=== PATIENT | female | born 1950 | race Two or more races ===

== ENCOUNTER 2019-04-29 11:11 | Emergency (ER) | payer OTHER ==
[~2019-04-29] VITALS: Ht 165.1 cm; Wt 93.0 kg
--- NOTE | 2019-04-29 11:29 | NUR ---
pt is in room #1b. dr Walsh evaluatedthe pt.
[2019-04-29] MEDS ORDERED: IV NORMAL SALINE 1000 ML BAG IV ONE (11:30)
[2019-04-29 11:42] LABS: BASOPHILS % (AUTO) 0.4 % (0.0-2.0); EOSINOPHILS % (AUTO) 0.6 % (0.0-7.0); HEMATOCRIT 39.7 % (31.2-41.9); LYMPHOCYTES # (AUTO) 1.9 K/uL (20.0-40.0); LYMPHOCYTES % (AUTO) 26.2 % (20.5-51.5); MEAN CORPUSCULAR HEMOGLOBIN 30.7 uug (24.7-32.8); MEAN CORPUSCULAR HGB CONC 33 g/dL (32.3-35.6); MEAN CORPUSCULAR VOLUME 93.4 fL (75.5-95.3); MONOCYTES # (AUTO) 0.4 K/uL (2.0-10.0); MONOCYTES % (AUTO) 5.5 % (0.0-11.0); NEUTROPHILS # (AUTO) 4.8 K/uL (1.8-8.9); NEUTROPHILS % (AUTO) 67.3 % (38.5-71.5); PLATELET COUNT (AUTO) 292 K/uL (179-408); RED BLOOD CELL COUNT(AUTO) 4.25 MIL/uL (3.63-4.92); WHITE BLOOD COUNT (AUTO) 7.1 K/uL (3.8-11.8)
[2019-04-29 11:50] LABS: CREATININE 0.8 mg/dL (0.6-1.3); POTASSIUM 3.7 mmol/L (3.5-5.1)
[2019-04-29] MEDS ORDERED: LEVO75TA7 PO (11:52)
[2019-04-29 11:56] LABS: BILIRUBIN,DIRECT 0.1 mg/dL (0.0-0.2); BILIRUBIN,TOTAL 0.4 mg/dL (0.2-1.0); TOTAL PROTEIN, SERUM 7.4 g/dL (6.4-8.2)
--- NOTE | 2019-04-29 13:40 | NUR ---
DR MACK TALKED TO DR CARDOSO FROM [facility]. ACCORDING TO [facility], PT IS GOING TO BE TRANSFERED TO [facility] [place] [facility]. ADMITTING MD IS DR CARDOSO. PT IS GOING TO ER. TELEPHONE #[phone] FOR REPORT.
--- NOTE | 2019-04-29 14:18 | NUR ---
REPORT WAS GIVEN TO [facility] LAURYN LOJA. REPORT WAS GIVEN TO AMBULANCE RN. PT WAS TRANSFERED TO [facility] ER AT [place] [facility]. NO S/S OF DISTRESS AT THE TIME OF [facility] ER. PT DENIES PAIN. NO SOB. NO N/V. NO DIZZINESS.
== END 2019-04-29 14:25 | disposition short-term general hospital (02) ==
LOC: ER 11:11
DX: R55 Syncope and collapse (principal); R11.0 Nausea; Z79.899 Other long term (current) drug therapy
CPT/HCPCS: 36415; 70030-TC; 71045; 85025; 85730; 93005; A4663; J7030